=== PATIENT | female | born 1995 | race Caucasian/White ===

== ENCOUNTER → 2018-04-10 14:58 | Outpatient (CLI) | payer OTHER, SELFPAY ==
[2018-04-11 12:49] LABS: Strep Grp B PCR POS for Grp B Strep
== END ==
PROVIDERS: Visit Provider Family Medicine
DX: Z3A.36 36 weeks gestation of pregnancy (principal)
CPT/HCPCS: 87653

== ENCOUNTER 2018-04-18 17:00 | Outpatient (CLI) | payer OTHER, SELFPAY | END 2018-04-18 17:47 | disposition home or self-care (01) | LOC: OB 04-21 15:22 | PROVIDERS: Visit Provider Family Medicine | DX: Z34.83 Encounter for supervision of other normal pregnancy, third trimester (principal); Z3A.37 37 weeks gestation of pregnancy | CPT/HCPCS: 59025; G0378; G0379 ==

== ENCOUNTER 2018-04-28 10:50 | Inpatient (IN) | payer OTHER, SELFPAY ==
[2018-04-28 12:14] LABS: Add Manual Diff / Slide Review NO; Basophils Percent Auto 0.5 % (0-2); Eosinophils Percent Auto 2.2 % (2-4); Hematocrit 27.4 % (36-46); Hemoglobin 8.6 g/dL (12.0-16.0); Lymphocytes Percent Auto 21.9 % (25-40); Mean Corpuscular HGB Conc 31.6 % (30-36); Mean Corpuscular Hemoglobin 21.9 PG (26-34); Mean Corpuscular Volume 69.5 fL (80-100); Neutrophils Absolute Auto 6800 /uL (3000-5900); Neutrophils Percent Auto 66.4 % (50-75); Platelet Count 293 X10^3/uL (150-400); Red Blood Cell Count 3.94 X10^6/uL (4.0-5.2); Red Cell Distribution Width 18.8 % (11.6-14.8); White Blood Cell Count 10.3 X10^3/uL (4.5-11.0)
[2018-04-28] MEDS: LACTATED RINGERS 1,000 ML 100 ML IV ×2 (12:14→15:13)
[2018-04-28] MEDS: PENICILLIN G POTASSIUM 5,000,000 UNIT in DEXTROSE 5% IN WATER 250 ML IV (12:15)
[2018-04-28 12:30] VITALS: BP 122/74
[2018-04-28 12:34] LABS: Anisocytosis 1+
--- NOTE | 2018-04-28 13:24 | P.HPOB_ITS ---
OB HPI History of Present Illness Chief complaint: EVALUATION OF LABOR Narrative: Nasrin Perez is a 22 year old female G2 para 1 at 39 weeks gestational age presented to my office this morning. She has a history of rapid deliveries. Length of labor previously was 4 hr. She comes in today intermittently saeed. Her cervix is 5-6 cm 80% effaced and bulging bag. Patient's GBS status is positive. She has had intermittent contractions all weekend but nothing strong. She has no fevers. She is not complaining of any vaginal discharge. And she feels good. After discussion with the patient and her examination of 5 cm dilated with a stretchy cervix to 6. Head and her GBS status being positive and previous history of rapid labors discussion with the Center and she was admitted to the labor and delivery floor for IV antibiotics and rupture of membranes for delivery. Due to her precipitous his previous delivery. care was established early at the [facility] and she was transferred. She has had routine follow-up. Her non weight was 178. Her current weight is 210. Blood pressures been normal and stable throughout. She previously has had 2 spontaneous abortions in a vaginal delivery with an epidural. No major problems during the visit she has been taking vitamins and has had some Proctofoam for some hemorrhoids. Past surgical history. Patient has had some with some teeth otherwise no major surgeries. Allergies patient has no known drug allergies. Past medical history denies hypertension heart disease asthma. Evaluation Evaluation Laboratory results: Laboratory Tests 04/28/18 04/28/18 04/28/18 11:10 11:10 Unknown WBC 10.3 RBC 3.94 L Hgb 8.6 L Hct 27.4 L MCV 69.5 L MCH 21.9 L MCHC 31.6 RDW 18.8 H Plt Count 293 Cancelled Neut % (Auto) 66.4 Lymph % (Auto) 21.9 L [place] % (Auto) 9.0 Eos % (Auto) 2.2 Baso % (Auto) 0.5 Neut # (Auto) 6800 H Plt Morphology Comment RBC Morphology Not Reportable Anisocytosis 1+ H Blood Type O Negative Antibody Screen Negative PFSH Social History Smoking Status: Never smoker Meds Home Medications Medication Instructions Recorded Confirmed Type PNV #[id number] acid-[id number] 1 tab PO DAILY 04/28/18 04/28/18 History Allergies Allergy/AdvReac Type Severity Reaction Status Date / Time bee venom protein (honey bee) Allergy Severe Swelling Verified 04/28/18 12:29 walnut Allergy Severe Swelling Verified 04/28/18 12:30 of Lip/Tongue/Throat Exam Vital Signs (past 8 hours): - 04/28/18 12:30 Blood Pressure 122/74 H Narrative Exam Narrative: . General: Alert no apparent distress. Affect is appropriate. Sae[place] it is uncomfortable. HEENT: Neck is supple without lymphadenopathy pupils equal round and reactive. Cardio: S1-S2 regular rate and rhythm. Respiratory: Lungs clear to auscultation. Abdomen: Gravid. Extremities: Normal deep tendon reflexes trace edema. [place]: Saeed regularly every 5 min irregularly with category 1 tracing heart tones: Good heart tones 130s to 140s reactive strip. Objective Labs Result Diagrams: 04/28/18 11:10 Labs: Laboratory Results - last 24 hr 04/28/18 04/28/18 04/28/18 11:10 11:10 Unknown WBC 10.3 RBC 3.94 L Hgb 8.6 L Hct 27.4 L MCV 69.5 L MCH 21.9 L MCHC 31.6 RDW 18.8 H Plt Count 293 Cancelled Neut % (Auto) 66.4 Lymph % (Auto) 21.9 L [place] % (Auto) 9.0 Eos % (Auto) 2.2 Baso % (Auto) 0.5 Neut # (Auto) 6800 H Plt Morphology Comment RBC Morphology Not Reportable Anisocytosis 1+ H Blood Type O Negative Antibody Screen Negative Assessment and Plan Plan: Plan: G2 para 1 at 39 weeks gestational age with 5-6 cm dilation with a stretchy cervix and bulging bag previous history of precipitous deliveries. She is currently GBS positive. Will meter to the Center. Will proceed with the penicillin G prophylaxis for GBS positive we will provide 2 courses. Because of her last rapid delivery she would like to have an epidural and then we will proceed with amniotomy. CBC will be drawn. And continue with expectant management.
[2018-04-28] MEDS: PENICILLIN G POTASSIUM 3,000,000 UNIT/50 ML FROZ.PIGGY 100 UNIT IV (16:17)
--- NOTE | 2018-04-28 17:09 | PM.OBPNLAB ---
Date/Time Date Patient Seen: 04/28/18 Time Patient Seen: 17:09 Pain Control Pain control: epidural Pelvic Exam Dilation (cm): 6 Effacement (%): 90 station: -1 Amniotic membrane status: Ruptured Comments: Clear fluid Contractions Contractions on admission: irregular Monitor mode: External Contraction frequency (min): 5 Contraction duration (min): 1 Contraction pattern: Irregular Status status: Category l Heart Rate Baseline: 135 Monitor Accelerations: Present Monitor Decelerations: Absent Monitor Variability: Moderate Assessment and Plan Assessment: induction ongoing Plan: continuous present management and begin patient augmentation Comments: Amniotomy done. Clear fluid. Baby's head engaged. We will see if labor progresses if not will start Pitocin. Discussed and updated care plan with patient
[2018-04-28] MEDS: OXYTOCIN PREMIX 30 UNIT/500 ML PLAST..BAG IV (17:27)
--- NOTE | 2018-04-28 19:24 | PM.OBPRVD ---
Delivery date: 04/28/18 Intrapartal events: Precipitous Labor < 3 hours Induction method: AROM Delivery augmentation: pitocin Delivery monitor: external FHT Route of delivery: Laceration description: None Estimated blood loss (mL): 200 Anesthesia type: Epidural Narrative: Stage I of labor 2 hr. Patient red labor and delivery for labor induction she presented to the office at 5 cm 90% effaced 0 to -1 station which the stress she cervix to 6-7 cm due to her GBS positive status and previous history of rapid delivery at 4:00 a.m. she was admitted. Patient received 2 doses of penicillin. During this time category 1 tracing. After the 2 doses of penicillin she was given epidural anesthesia by request. Patient had a ROM of clear fluid. Mild Pitocin augmentation. Within an hour and half patient became complete and +2. During stage I of labor heart tones were reassuring. Mother tolerated labor fine. Stage II approximately 15 min patient pushed to complete a viable female with the occiput put anterior position. Delivery of the head showed no nuchal cord delivery of the shoulder showed a mild body cord. Baby was delivered spontaneously and placed on mother's abdomen. Baby was vigorous. Cord was cut and transected. Baby has had spontaneous cry. During stage II of labor heart tones were category 1. Stage III of labor. Delivery of intact placenta with three-vessel cord estimated blood loss was 300 cc inspection of the vagina and cervix shows no lacerations or tears. Baby's Apgars 8 and 9 estimated blood loss 200 cc.
[2018-04-29] MEDS: HYDROCODONE/ACET 5/325 TABLET 1 TAB PO ×4 (06:54→20:08)
[2018-04-29] MEDS: DOCUSATE 250 MG CAPSULE PO (08:30)
[2018-04-29] MEDS: PRENATAL VIT,CALC/IRON/FOLIC 1 TABLET 1 TAB PO (08:30)
--- NOTE | 2018-04-29 08:42 | PM.OBPN.1 ---
Subjective - OB Interval history: day 1. Patient is doing well. Up ambulating eating well. Normal urination. Vaginal bleeding is as expected. Pain is well controlled. Breast-feeding is going okay difficulty with breast-feeding with last baby. Vital signs are stable. Blood counts are normal. Exam Narrative Exam Narrative: General: Alert no apparent distress. Affect is appropriate. [place] it is uncomfortable. HEENT: Neck is supple without lymphadenopathy pupils equal round and reactive. Cardio: S1-S2 regular rate and rhythm. Respiratory: Lungs clear to auscultation. Abdomen: Uterus firm. Extremities: Normal deep tendon reflexes trace edema. Objective Labs Result Diagrams: 04/28/18 11:10 Labs: Laboratory Results - last 24 hr 04/28/18 04/28/18 04/28/18 11:10 11:10 Unknown WBC 10.3 RBC 3.94 L Hgb 8.6 L Hct 27.4 L MCV 69.5 L MCH 21.9 L MCHC 31.6 RDW 18.8 H Plt Count 293 Cancelled Neut % (Auto) 66.4 Lymph % (Auto) 21.9 L [place] % (Auto) 9.0 Eos % (Auto) 2.2 Baso % (Auto) 0.5 Neut # (Auto) 6800 H Plt Morphology Comment RBC Morphology Not Reportable Anisocytosis 1+ H Blood Type O Negative Antibody Screen Negative Maternal Bleed 04/29/18 06:45 WBC RBC Hgb Hct MCV MCH MCHC RDW Plt Count Neut % (Auto) Lymph % (Auto) [place] % (Auto) Eos % (Auto) Baso % (Auto) Neut # (Auto) Plt Morphology Comment RBC Morphology Anisocytosis Blood Type Antibody Screen Maternal Bleed Negative Assessment & Plan Plan Comments: day 1. Vital signs are stable blood counts good. Patient is . Pain is well controlled tolerating diet and ambulating. Discharge tomorrow. Time Spent With Patient Total time spent is greater than 50% in coordination of care (as documented) at patient's floor/unit and/or counseling patient: less than 15 minutes
[2018-04-29 09:47] LABS: Hemoglobin 7.7 g/dL (12.0-16.0)
[2018-04-29 09:50] LABS: Hematocrit 24.1 % (36-46)
[2018-04-29] MEDS: RHO(D) IMMUNE GLOBULIN 1,500 UNIT SYRINGE 1500 UNIT IM (20:03)
--- NOTE | 2018-04-30 08:26 | PM.OBDS.1 ---
Discharge Providers Date of admission: 04/28/18 11:32 Consults: 04/29/18 06:36 Consult to Food Stand Manager Routine Comment: Discharge provider: Flo Morel MD Summary Time Spent with Patient Patient delivered a viable female infant. Routine care provided. Patient discharged on ibuprofen Colace and hydrocodone for pain control. Patient will follow up in 6 weeks for care. Objective Labs Result Diagrams: 04/29/18 07:00 Labs: Laboratory Results - last 24 hr 04/29/18 07:00 Hgb 7.7 L Hct 24.1 L Discharge Plan Discharge Plan Patient Disposition: Home, Self-Care Discharge comment: home f/u nga in 6 weeks Discharge Med Rec/Prescriptions Prescriptions: New hydrocodone-acetaminophen 5-325 mg tablet 2 tab PO Q6-8H PRN (Reason: pain) Qty: 30 RF: 0 docusate sodium [Colace] 100 mg capsule 100 mg PO BID Qty: 30 RF: 0 ibuprofen 600 mg tablet 600 mg PO TID PRN (Reason: pain) Qty: 30 RF: 0 No Action PNV #[id number] acid-omega3 1 tab PO DAILY RF: 0 Discharge Data Attending Provider: Flo Morel Admit Date/Time: 04/28/18 11:32
[2018-04-30 09:31] VITALS: BP 125/83; PULSE 81; RESP 16; TEMP 36.8
[2018-04-30 10:11] VITALS: BP 125/83; PULSE 81; RESP 16; TEMP 36.8
== END 2018-04-30 11:00 | disposition home or self-care (01) | DRG 774 ==
PROVIDERS: Admitting Provider Family Medicine; Visit Provider Family Medicine
DX: O98.82 Other maternal infectious and parasitic diseases complicating childbirth (principal); B95.1 Streptococcus, group B, as the cause of diseases classified elsewhere; Z3A.39 39 weeks gestation of pregnancy; Z37.0 Single live birth
CPT/HCPCS: 01967; 36415; 59050; 59410; 85014; 85018; 85025; 85461; 86850; 86900; 86901; G0378; G0379; J2540; J2590; J2790

== ENCOUNTER → 2019-08-26 14:00 | Outpatient (CLI) | payer OTHER, SELFPAY ==
--- NOTE | 2019-08-26 14:01 | DI.US.S_ITS ---
PROCEDURE: US OB >= 14 WEEKS FETUS INDICATIONS: ANATOMY, RAIMUNDO 01-11-20 OUTSIDE/PRIOR DATING DATA: Estimated date of delivery (RAIMUNDO) from first dating scan: 01/11/[address] Morel. TECHNIQUE: Real-time scanning was performed of the fetus, with image documentation and biometric measurements. Endovaginal scanning: No COMPARISON: [facility], , OB >= 14 WEEKS FETUS, 03/18/2018, 14:40. FINDINGS: General: A single living intrauterine gestation is present. Presentation: Breech. Placenta: Placental position is anterior, without previa. Amniotic fluid index: 12.5 cm, normal range is 5-24 cm. heart rate: 137 beats per minute. Maternal cervical canal: 3.2 cm long. Normal lower limit is 2.5 cm. biometrics: Biparietal diameter: 18 weeks 5 days Head circumference: 19 weeks Abdominal circumference: 19 weeks 2 days Femur length: 19 weeks 6 days Estimated gestational age from initial scan: 20 weeks 2 days Composite gestational age from present scan: 19 weeks 2 days Estimated weight and percentile: 296 g; 11 percentile Measurement variability for biometric dating: +/- 7 days from 14 weeks to 15 weeks 6 days gestation, +/- 10 days from 16 weeks to 21 weeks 6 days gestation, +/- 2 weeks from 22 weeks to 27 weeks 6 days gestation, +/- 3 weeks for 28 weeks gestation or later. weight reference: 4500 g or EFW >90/95% is considered macrosomia or large for gestational age. EFW <10% is small for gestational age. EFW 5% or less is considered intra-uterine growth restriction. Anatomic survey: Neuro: Ventricles are non-dilated at less than 10 mm. Cisterna magna is normal at 3-11 mm. Cerebellum is normal in size and morphology. Nuchal skin fold: Normal at less than 6 mm between 14-21 weeks gestational age. Face: Nose and lips, facial profile are normal. Spine: Not well-seen. Heart: Normal four-chamber heart. Outflow tracts are not well seen. Diaphragm: Normal. Stomach: Left-sided stomach is present. Kidneys: No hydronephrosis. Normal is less than 5 mm in 2nd trimester, less than 7 mm in 3rd trimester. Cord: 3-vessel cord has orthotopic insertion. Bladder: Normal in size. Extremities: All 4 extremities identified. IMPRESSION: 1. Single living IUP redemonstrated and interval growth is lower limits of normal. 2. spine, 4 chamber heart and cardiac outflow tracts suboptimally visualized; otherwise normal anatomic survey. Followup recommended. Dictated by: Chiki ZURITA Interpreted: Dario Wills MD on 08/26/2019 at 16:51 Approved by: Dario Wills M.D. on 08/27/2019 at 15:19
== END ==
PROVIDERS: Visit Provider Family Medicine
DX: Z34.82 Encounter for supervision of other normal pregnancy, second trimester (principal); Z3A.19 19 weeks gestation of pregnancy
CPT/HCPCS: 76811

== ENCOUNTER → 2019-10-26 08:21 | Outpatient (CLI) | payer OTHER, SELFPAY ==
[2019-10-26 09:54] LABS: Hematocrit 29.9 % (36-46); Hemoglobin 9.9 g/dL (12.0-16.0)
[2019-10-26 10:10] LABS: GTT (PREG) 1 Hour PP 50gm Dose 144 mg/dL (76-139)
== END ==
PROVIDERS: Referring Provider Family Medicine; Visit Provider Family Medicine
DX: Z34.82 Encounter for supervision of other normal pregnancy, second trimester (principal); Z3A.26 26 weeks gestation of pregnancy
CPT/HCPCS: 36415; 82950; 85014; 85018

== ENCOUNTER → 2019-10-27 14:38 | Outpatient (CLI) | payer OTHER, SELFPAY | PROVIDERS: PCP Student in an Organized Health Care Education/Training Program; Referring Provider Family Medicine; Visit Provider Family Medicine | DX: Z34.83 Encounter for supervision of other normal pregnancy, third trimester (principal); Z3A.29 29 weeks gestation of pregnancy | CPT/HCPCS: 36415; 86850 ==

== ENCOUNTER → 2019-11-02 08:57 | Outpatient (CLI) | payer OTHER, SELFPAY ==
[2019-11-02 10:24] LABS: Glucose Fasting 85 mg/dL (70-100)
[2019-11-02 11:32] LABS: Glucose 1 Hour 159 mg/dL (70-170)
[2019-11-02 12:59] LABS: Glucose 2 Hour 119 mg/dL (70-140)
[2019-11-02 13:01] LABS: Glucose Tol Interpretation INTERPRETATION
[2019-11-02 14:11] LABS: Glucose 3 Hour 78 mg/dL (70-115)
== END ==
PROVIDERS: PCP Student in an Organized Health Care Education/Training Program; Referring Provider Family Medicine; Visit Provider Family Medicine
DX: O24.419 Gestational diabetes mellitus in pregnancy, unspecified control (principal)
CPT/HCPCS: 36415; 82951; 82952

== ENCOUNTER → 2019-12-14 08:28 | Outpatient (CLI) | payer OTHER, SELFPAY ==
[2019-12-15 12:58] LABS: Strep Grp B PCR NEG for Grp B Strep
== END ==
PROVIDERS: PCP Student in an Organized Health Care Education/Training Program; Visit Provider Family Medicine
DX: Z34.83 Encounter for supervision of other normal pregnancy, third trimester (principal); Z3A.36 36 weeks gestation of pregnancy
CPT/HCPCS: 87653

== ENCOUNTER → 2019-12-21 12:00 | Outpatient (CLI) | payer OTHER, SELFPAY ==
--- NOTE | 2019-12-21 12:03 | DI.US.S_ITS ---
PROCEDURE: US OB >= 14 WEEKS FETUS INDICATIONS: DECREASED SIZE TECHNIQUE: Real-time scanning was performed of the fetus, with image documentation and biometric measurements. COMPARISON: [facility], , OB >= 14 WEEKS FETUS, 08/26/2019, 14:26. FINDINGS: General: A single living intrauterine gestation is present. Presentation: Since Placenta: Placental position is anterior without evidence of previa. Amniotic fluid index: 13.6 cm heart rate: 162 beats per minute. Maternal cervical canal: Not adequately seen. biometrics: Biparietal diameter: 8.7 cm, 35 weeks 1 day Head circumference: 32.1 cm, 36 weeks 1 day Abdominal circumference: 30.8 cm, 34 weeks 6 days Femur length: 7.2 cm, 36 weeks 5 days Estimated gestational age from initial scan: 37 weeks 0 days Composite gestational age from present scan: 35 weeks 5 days Estimated weight and percentile: 2697 g (19th percentile) IMPRESSION: 1. Single live intrauterine at 35 weeks 5 days (current sonographic RAIMUNDO 01/20/20) is concordant with the clinical dates and has demonstrated appropriate interval growth. 2. Estimated weight is within the 19th percentile. Dictated by: Darryl Epperson M.D. on 12/21/2019 at 11:50 Approved by: Darryl Epperson M.D. on 12/21/2019 at 11:53
== END ==
PROVIDERS: PCP Student in an Organized Health Care Education/Training Program; Referring Provider Family Medicine; Visit Provider Family Medicine
DX: Z36.4 Encounter for antenatal screening for fetal growth retardation (principal); Z3A.35 35 weeks gestation of pregnancy
CPT/HCPCS: 76815

== ENCOUNTER 2019-12-23 14:43 | Outpatient (CLI) | payer OTHER, SELFPAY | END 2019-12-23 15:55 | disposition home or self-care (01) | LOC: OB 12-24 08:07 | PROVIDERS: PCP Student in an Organized Health Care Education/Training Program; Referring Provider Family Medicine; Visit Provider Family Medicine | DX: O36.5930 Maternal care for other known or suspected poor fetal growth, third trimester, not applicable or unspecified (principal); O26.23 Pregnancy care for patient with recurrent pregnancy loss, third trimester; Z3A.37 37 weeks gestation of pregnancy | CPT/HCPCS: 59025; 84112; G0378; G0379 ==

== ENCOUNTER → 2020-01-04 15:16 | Outpatient (CLI) | payer OTHER, SELFPAY ==
[2020-01-05 19:42] LABS: COVID19 Sendout Not Detected (Not Detect)
== END ==
PROVIDERS: PCP Student in an Organized Health Care Education/Training Program; Visit Provider Registered Nurse
DX: Z34.90 Encounter for supervision of normal pregnancy, unspecified, unspecified trimester (principal)
CPT/HCPCS: 87635

== ENCOUNTER 2020-01-07 07:53 | Inpatient (IN) | payer OTHER, SELFPAY ==
--- NOTE | 2020-01-07 08:03 | PM.OBHP.1 ---
OB HPI History of Present Condition Chief complaint: MATERNITY Narrative: Nasrin Perez is a 24 year old female G5 para 2 estimated due date of 01/11/2020 with LMP and 01/14/2020 with early ultrasound presents for induction of labor. Patient has a history of previous rapid deliveries 4 hours and approximately 2 hours. She was a late transfer of care from the [facility]. She has had routine care. complications include O negative blood type received RhoGAM history of rapid deliveries previous history of GBS positive status carrier negative this mildly elevated 1 hour GGT at 1:44 a.m. and anemia with iron supplementation. Patient was provided diabetes educator and managed her blood sugars with diet. At the end . Mom had decreased in abdominal circumference and ultrasound was done which showed baby to be at 19th percentile based on ultrasound. Patient states she has been feeling well. Good baby movement over the last week no headache fevers chills nausea vomiting. Some mild swelling. No leaking of fluid or vaginal bleeding. On arrival to the center her baby is category 1 tracing. Blood pressure is normal and she is afebrile. labs show O negative blood type RhoGAM given. GC chlamydia negative syphilis negative HIV negative hepatitis-B and C negative rubella and varicella immune. GGT 1 hour 144 GBS negative hemoglobin hematocrit 9.9 and 29.9. Normal genetic screening. Normal 20 week ultrasound. Evaluation Evaluation Baseline heart rate: 145 Variability: Average (6-10) monitor accelerations: Present Category of Tracing: I Cervical dilation (cm): 1 Cervical effacement (%): 70 station: -3 [facility] Surgical History History of D&C (Acute ~01/2016) History of D&C (Acute ~04/2016) [place] teeth removed (Acute) Family History Mother Asthma Glaucoma Macular degeneration Multiple births, unspecified, all liveborn Father Glaucoma Macular degeneration Grandfather Cardiovascular disease Grandfather Diabetes mellitus Grandmother Breast cancer Social History marital status: household members: spouse and children Smoking Status: Never smoker alcohol intake: current (ON OCCASION ) substance use type: does not use Meds Home Medications and Allergies Home Medications Medication Instructions Recorded Confirmed Type PNV #[id number] acid-omega3 1 tab PO DAILY 04/28/18 01/07/20 History Allergies Allergy/AdvReac Type Severity Reaction Status Date / Time bee venom protein (honey bee) Allergy Severe Swelling Verified 12/28/19 11:25 [place] Allergy Severe Swelling Verified 12/28/19 11:25 of Lip/Tongue/Throat Exam Narrative Exam Narrative: . General: Alert no apparent distress. Affect is appropriate. [place] it is uncomfortable. HEENT: Neck is supple without lymphadenopathy pupils equal round and reactive. Cardio: S1-S2 regular rate and rhythm. Respiratory: Lungs clear to auscultation. Abdomen: Gravid. Extremities: Normal deep tendon reflexes trace edema. Cervical exam 70% 1 cm -3 soft posterior [place]: Currently no contractions heart tones: Category 1 heart rate 145 Objective Labs Result Diagrams: 01/07/20 08:20 Assessment and Plan Assessment and Plan Assessment and Plan narrative: 24-year-old G5 para 2 39+ weeks gestational age for induction of labor. Patient has a history of rapid labors. GBS status is negative. care complicated by elevated GGT monitored by diet. Mild anemia which she was on iron supplementation and decreased growth near the end of the with an ultrasound showed 19% weight. After review of the patient with the risks benefits and common complications of induction of labor. Patient's consent was obtained. Labor orders were written for. And begin induction at with peau ptosis. Rupture of membranes when able. Epidural for pain relief.
[2020-01-07] MEDS: LACTATED RINGERS 1,000 ML 100 ML IV ×2 (08:20→12:46)
[2020-01-07] MEDS: OXYTOCIN PREMIX 30 UNIT/500 ML PLAST..BAG IV (08:38)
[2020-01-07 08:48] LABS: Add Manual Diff / Slide Review NO; Basophils Absolute Auto 0 /uL (0-100); Basophils Percent Auto 0.2 % (0-2); Eosinophils Absolute Auto 300 /uL (0-450); Eosinophils Percent Auto 3.4 % (2-4); Hematocrit 27.6 % (36-46); Hemoglobin 8.6 g/dL (12.0-16.0); Lymphocytes Absolute Auto 2300 /uL (1100-4500); Lymphocytes Percent Auto 22.5 % (25-40); Mean Corpuscular HGB Conc 31.3 % (30-36); Mean Corpuscular Hemoglobin 21.8 PG (26-34); Mean Corpuscular Volume 69.6 fL (80-100); Monocytes Absolute Auto 900 /uL (0-900); Monocytes Percent Auto 9.1 % (3-14); Neutrophils Absolute Auto 6600 /uL (1500-7000); Neutrophils Percent Auto 64.8 % (50-75); Platelet Count 283 X10^3/uL (150-400); Red Blood Cell Count 3.96 X10^6/uL (4.0-5.2); Red Cell Distribution Width 19.1 % (11.6-14.8); White Blood Cell Count 10.2 X10^3/uL (4.5-11.0)
[2020-01-07 09:24] VITALS: BP 115/65
[2020-01-07 10:15] LABS: Anisocytosis 1+
[2020-01-07 10:16] LABS: Hypochromasia 1+; Microcytosis 1+
--- NOTE | 2020-01-07 10:33 | PM.OBPNLAB ---
Date/Time Date Patient Seen: 01/07/20 Time Patient Seen: 09:45 Pain Control Pain control: tolerating well Comments: started pitocin. doing well just starting to contract. Pelvic Exam Dilation (cm): 1 Effacement (%): 70 station: -3 Contractions Pitocin rate (mU/min): 6 Contraction frequency (min): 8 Contraction duration (min): 1 Contraction pattern: Irregular Status status: Category l Heart Rate Baseline: 145 Assessment and Plan Assessment: induction ongoing Plan: continuous present management
--- NOTE | 2020-01-07 12:13 | PM.OBPNLAB ---
Date/Time Date Patient Seen: 01/07/20 Time Patient Seen: 12:13 Pain Control Pain control: tolerating well Pelvic Exam Dilation (cm): 3 Effacement (%): 80 station: -2 Amniotic membrane status: Intact Contractions Contractions on admission: regular Monitor mode: External Pitocin rate (mU/min): 12 Contraction frequency (min): 5 Contraction duration (min): 1 Contraction pattern: Regular Status status: Category l Assessment and Plan Assessment: induction ongoing
--- NOTE | 2020-01-07 13:29 | P.PCN_ITS ---
Regional Block Pre-procedure Procedure: Continuous Lumbar Epidural for L&D Attending OB provider: Flo Morel PMH/JERSON narrative: term induction, no complications. Previous difficulties with epidurals: one sided, hypotension bradycardia with bradycardia r equiring treatment, high epidural, low epidural. ASA Class: II Labs: Hct 27.6 % (36-46) L 01/07/20 08:20 Plt Count 283 X10^3/uL (150-400) 01/07/20 08:20 Medications: Current Medications Generic Name Dose Route Start Last Admin Trade Name Freq PRN Reason Stop Dose Admin Diphenhydramine HCl 25 mg 01/07/20 12:33 Benadryl IV Q10M PRN Pruritis Lactated Ringer's 1,000 mls @ 125 mls/hr 01/07/20 08:45 Lactated Ringers IV CONT JODI Oxytocin/Lactated Ringer's 30 unit in 500 mls @ 3 mls/hr 01/07/20 08:45 01/07/20 08:38 Oxytocin Premix IV 3 milliunit/min TITRATE JODI 3 mls/hr Administration Protocol 3 MILLIUNIT/MIN Lactated Ringer's 1,000 mls @ 100 mls/hr 01/07/20 08:45 01/07/20 12:46 Lactated Ringers IV 100 mls/hr CONT JODI Administration FENT 2MCG/ML BUPIV 0.125% EPI 200 mcg in 100 mls @ 6 mls/hr 01/07/20 12:45 Fentanyl/Bupiv/Ns 2mcg/Ml - 0.125% EPIDURAL CONT JODI Allergies: Allergies Allergy/AdvReac Type Severity Reaction Status Date / Time bee venom protein (honey bee) Allergy Severe Swelling Verified 12/28/19 11:25 [place] Allergy Severe Swelling Verified 12/28/19 11:25 of Lip/Tongue/Throat Procedure Insertion date: 01/07/20 Insertion time: 13:08 Prep/Local: betadine x3 Interspace: L2-3 Patient position: sitting Needle: 18 gauge Hustead (27g Pencan through Hustead, clear CSF, 0.5mL bupivacaine 0.25%) Loss of resistance with: saline NA at (cm): 5 Catheter placed at SKIN (cm): 10 Catheter in SPACE (cm): 5 Insertion: No CSF, No Blood, Yes Paresthesia with insertion, No Paresthesia with injection and No Test dose reaction Initial Medications TEST DOSE time: 13:09 TEST DOSE: 1.5% lidocaine with epinephrine 1:200k (mL): 3 BOLUS DOSE time: 13:20 BOLUS DOSE (mL): 3 BOLUS DOSE med: 0.125% bupivacaine with fentanyl 10 mcg/mL Infusion INFUSION: 0.125% bupivacaine and with fentanyl 2 mcg/mL Initial rate (mL/hr): 6 Subsequent interventions: 1445: pain returned suddenly with contractions, given 5mL 0.25% and 50mcg fentanyl LEP bolus, rate increased to 10mL/h. 1503: no relief, delivered at about 15:15. Post-procedure Anesthesia time START: 12:51 Anesthesia time END: 15:17 Post-procedure Anesthesia Assessment: Yes CV function: HR/BP stable, Yes Resp function: RR/sat/airway adequate, Yes Post-op hydration adequate, Yes Pain control adequate and Yes Mental status appropriate
--- NOTE | 2020-01-07 14:03 | PM.OBPNLAB ---
Date/Time Date Patient Seen: 01/07/20 Time Patient Seen: 14:03 Pain Control Pain control: tolerating well and epidural Pelvic Exam Dilation (cm): 5 Effacement (%): 80 station: -2 Amniotic membrane status: Leaking Comments: clear fluid Contractions Monitor mode: External Pitocin rate (mU/min): 12 Contraction frequency (min): 4 Contraction pattern: Regular Status status: Category l Heart Rate Baseline: 140 Monitor Accelerations: Present Monitor Decelerations: Absent Monitor Variability: Moderate Assessment and Plan Assessment: induction ongoing Plan: continuous present management Comments: rom clear fluid epidural in place. good pain control. ruelas in place. vss and afibrle. reasuring heart tones.
--- NOTE | 2020-01-07 15:25 | PM.OBPRVD ---
Labor & Delivery Route of delivery: Narrative: I was present on the floor and called in to attend this patient, currently precipitously delivering, while her primary care OB provider was being called. Head was already delivered when I entered the room and there was a loose nuchal cord. I quickly put on gloves and reduced the cord without difficulty. She then pushed and anterior followed by posterior shoulders were delivered with ease, followed by the remainder of the body. The baby was placed on maternal abdomen and was vigorous. After over 1 minutes, there was no longer any cord pulsation and cord was being clamped, then cut by father of baby. Placenta was still attached. Perineum was noted to be intact. Dr. Morel, her OB, arrived at this time and took over for delivery of the placenta and further patient care. See his delivery note.
--- NOTE | 2020-01-07 15:46 | P.PCNOB_ITS ---
Events: Labor Induction and Labor Augmentation Labor & Delivery Delivery date: 01/07/20 Induction method: per pitocin protocol Delivery augmentation: rupture of membranes Delivery monitor: external FHT Route of delivery: L&D Laceration Description: None Estimated blood loss (mL): 200 Anesthesia type: Epidural Narrative: Stage I of labor approximately 5 hours. Patient was admitted to the labor and delivery floor for induction of labor. Elective. Baby was category 1 at the beginning of the labor process with normal vital signs on mom and normal temperature. After evaluation blood was drawn on mom she was found to be anemic which she has been during the . She had normal platelet counts. Pitocin was started. During stage I of labor she had reassuring heart tones. She got up to a 15 milliunits of Pitocin. Category 1 category 2 tracing throughout stage I of labor. Baby tolerated labor fine. Mom did well. Approximately 5 cm patient was given an epidural with good results. Then had rupture of membranes with clear fluid. Baby made good descent through the canal during the labor process. Stage II approximately 5 minutes. Delivery of viable female infant vertex position nuchal cord easily reducible. I was coming from my office to the delivery floor as patient went from complete delivery fat rather rapidly and Dr. Avni Whitt withstanding by. Baby was easily delivered placed on mother's abdomen. Cord was pulsating then cut and clamped. Baby was resting comfortably. During stage II of labor category 1 tracing. Vital signs were stable. Pitocin was on board. Stage III approximately 5 minutes. Delivery of intact placenta with three- vessel cord. Inspection of vagina showed no cervical or vaginal lacerations which needing repair. Mom and baby were resting good afterwards. Apgars were 8 and 9 estimated blood loss was less than 200 cc.
[2020-01-07] MEDS: ACETAMINOPHEN 325 MG TABLET 650 MG PO (18:54)
[2020-01-08] MEDS: ACETAMINOPHEN 325 MG TABLET 650 MG PO (00:56)
[2020-01-08] MEDS: IBUPROFEN 600 MG TABLET PO (03:49)
[2020-01-08 06:42] LABS: Hematocrit 25.6 % (36-46); Hemoglobin 8.1 g/dL (12.0-16.0)
[2020-01-08] MEDS: HYDROCODONE/ACET 5/325 TABLET 1 TAB PO (06:53)
--- NOTE | 2020-01-08 07:56 | PM.OBDS.1 ---
Discharge Providers Provider Date of admission: 01/07/20 07:53 Discharge Date: 01/08/20 Primary care physician: Wendi Ch Consults: 01/08/20 15:50 Consult to Contact Center Specialist Routine Comment: Discharge provider: Flo Morel MD Summary Hospital Course Date Patient Seen: 01/08/20 Time Patient Seen: 07:57 Procedures: Vaginal delivery Hospital Course: Routine delivery and post delivery care. Peripartum Data Infant Delivery Method: Natural Vaginal Laceration description: None Procedures: Spontaneous vaginal delivery of viable female infant Apgars 8 9 Spontaneous delivery of intact placenta complications: none Status at Discharge Cognitive/behavioral status at discharge: oriented Functional status at discharge: independent ambulation Overall status at discharge: patient is back to baseline Time Spent with Patient Time attestation: Total time spent providing and/or coordinating discharge services: Time spent: Less than 30 minutes Objective Labs Result Diagrams: 01/08/20 06:35 Labs: Laboratory Results - last 24 hr 01/07/20 01/07/20 01/08/20 08:20 08:20 06:35 WBC 10.2 RBC 3.96 L Hgb 8.6 L 8.1 L Hct 27.6 L 25.6 L MCV 69.6 L MCH 21.8 L MCHC 31.3 RDW 19.1 H Plt Count 283 Neut % (Auto) 64.8 Lymph % (Auto) 22.5 L [place] % (Auto) 9.1 Eos % (Auto) 3.4 Baso % (Auto) 0.2 Neut # (Auto) 6600 Lymph # (Auto) 2300 [place] # (Auto) 900 Eos # (Auto) 300 Baso # (Auto) 0 RBC Morphology See below Hypochromasia 1+ H Anisocytosis 1+ H Microcytosis 1+ H Blood Type O Negative Antibody Screen Positive Antibody Identification Anti-D Maternal Bleed 01/08/20 06:35 WBC RBC Hgb Hct MCV MCH MCHC RDW Plt Count Neut % (Auto) Lymph % (Auto) [place] % (Auto) Eos % (Auto) Baso % (Auto) Neut # (Auto) Lymph # (Auto) [place] # (Auto) Eos # (Auto) Baso # (Auto) RBC Morphology Hypochromasia Anisocytosis Microcytosis Blood Type Antibody Screen Antibody Identification Maternal Bleed Negative Discharge Plan Discharge Plan Patient Disposition: Home Discharge orders & Medications Prescriptions: New docusate sodium [DOK] 100 mg Capsule 100 mg PO BID Qty: 30 RF: 0 ibuprofen 600 mg Tablet 600 mg PO Q6HR PRN (Reason: Pain, Mild (1-3)) Qty: 30 RF: 0 ferrous gluconate 324 mg (38 mg iron) Tablet 324 mg PO BID Qty: 60 RF: 1 Continued PNV #[id number] 1 tab PO DAILY Qty: 90 RF: 3 PNV #[id number] acid-[id number] 1 tab PO DAILY RF: 0 Follow up/Referrals: Wendi Ch [Primary Care Provider] - Diet/Activity/Treatments Diet: Diet as Tolerated Activity: As tolerated Visit Report/Discharge Packet Visit Report Forms: Patient Portal/API, Stroke Signs & Symptoms Discharge Data Primary Care Provider: Wendi Ch Attending Provider: Flo Morel Admit Date/Time: 01/07/20 07:53
[2020-01-08] MEDS: DOCUSATE 100 MG CAPSULE PO (08:25)
[2020-01-08] MEDS: FERROUS GLUCONATE 324 MG TABLET PO (08:25)
[2020-01-08] MEDS: PRENATAL VIT,CALC/IRON/FOLIC 1 TABLET 1 TAB PO (08:25)
[2020-01-08] MEDS: RHO(D) IMMUNE GLOBULIN 1,500 UNIT SYRINGE 1500 UNIT IM (08:26)
== END 2020-01-08 11:45 | disposition home or self-care (01) | DRG 807 ==
PROVIDERS: Admitting Provider Family Medicine; PCP Student in an Organized Health Care Education/Training Program; Referring Provider Family Medicine; Visit Provider Family Medicine
DX: O99.02 Anemia complicating childbirth (principal); Z37.0 Single live birth; D64.9 Anemia, unspecified; Z3A.39 39 weeks gestation of pregnancy; O69.81X0 Labor and delivery complicated by cord around neck, without compression, not applicable or unspecified
CPT/HCPCS: 01967; 36415; 59050; 59410; 85014; 85018; 85025; 85461; 86850; 86870; 86900; 86901; G0378; G0379; J2590; J2790

== ENCOUNTER → 2020-09-28 09:08 | Outpatient (CLI) | payer OTHER, SELFPAY ==
--- NOTE | 2020-09-28 | DI.ECHO.S_ITS ---
[facility]---------+ [facility] +---------+ : : [address] : [address] : : : : [id number] : : : : Phone: [phone]+ Echocardiogram Report + + :Name: HILTON ELIZABETH Study Date: 09/28/2020 Height: 69.5 in: :[facility] Weight: 192 lb : : Gender: Female BSA: 2.0 m2 : :: 1995 Age: 25 yrs BP: 121/87 mmHg: :Reason For Study: CARDIAC CONDITION : :Ordering Physician: LASHON MUÑOZ : :JORDI JIMENEZ Performed By: Alana Romero : :Referring: LASHON MUÑOZ MD : + + Interpretation Summary Frequent PVCs noted. The left ventricle is normal in size and wall thickness. Left ventricular systolic function appears normal without focal wall motion abnormalities. The ejection fraction is estimated to be 55-60%. Diastolic parameters suggest probable normal left ventricular diastolic function and normal filling pressures. The right ventricle is normal in size and function. The left atrial size is normal. Right atrial size is normal. There is no significant valvular heart disease. The aortic root is normal size. Procedure: A two-dimensional transthoracic echocardiogram with color flow and Doppler was performed. The study quality was technically adequate. There is no prior echocardiogram noted for this patient. The patient had frequent PVCs during the exam. The heart rate ranged between 65-74 bpm during the study. Left Ventricle: The left ventricle is normal in size and wall thickness. Left ventricular systolic function appears normal without focal wall motion abnormalities. The ejection fraction is estimated to be 55-60%. Diastolic parameters suggest probable normal left ventricular diastolic function and normal filling pressures. Right Ventricle: The right ventricle is normal in size and function. Atria: The left atrial size is normal. Right atrial size is normal. There is no Doppler evidence for an interatrial shunt. Mitral Valve: The mitral valve is normal in structure and function. There is trace mitral regurgitation. Aortic Valve: The aortic valve is trileaflet. The aortic valve opens well. There is no aortic valve stenosis. No aortic regurgitation is present. Tricuspid Valve: The tricuspid valve is normal in structure and function. There is trace tricuspid regurgitation. Pulmonic Valve: The pulmonic valve is not well visualized. There is no pulmonic valvular regurgitation. There is no significant valvular heart disease. Great Vessels: The aortic root is normal size. The dimensions of the ascending aorta are normal. The IVC is of normal diameter and collapses greater than 50% with a sniff. This suggests a low right atrial pressure of 3 mm Hg. Pericardium/ Pleura There is no pericardial effusion. There is no pleural effusion. MMode/2D Measurements & Calculations LVIDd: 5.1 cm LVOT diam: 2.1 cm LVIDs: 3.4 cm Ao root diam: 2.6 cm FS: 33.6 % asc Aorta Diam: 2.4 cm EPSS: 1.4 cm Ao Arch Diam (Prox Trans): 2.1 cm IVSd: 0.93 cm LVPWd: 0.67 cm LV mcdermott. diameter/BSA (cm/m^2): 2.5 LV sys. diameter/BSA (cm/m^2): 1.7 LA A2 area: 13.6 cm2 RA long axis: 4.4 cm LA A4 area: 15.7 cm2 RA area: 14.0 cm2 LA length (vol): 5.0 cm RA vol: 38.2 ml LA vol: 36.3 ml RA : 18.7 ml/m2 LA vol index: 17.8 ml/m2 IVC diam: 1.6 cm RVD1 (basal): 3.1 cm TAPSE: 2.0 cm Doppler Measurements & Calculations Ao V2 max: 120.9 cm/sec LVOT Max Lencho: 89.7 cm/sec Ao V2 mean: 79.5 cm/sec LV V1 max P.2 mmHg Ao max P.8 mmHg LV V1 VTI: 18.4 cm Ao mean P.9 mmHg BENITO(I,D): 2.8 cm2 Ao V2 VTI: 22.7 cm BENITO(V,D): 2.5 cm2 sev ratio: 0.81 BENITO indexed to BSA (cm^2/m^2): 1.4 MV E max lencho: 99.0 cm/sec PA V2 max: 58.5 cm/sec MV A max lencho: 60.6 cm/sec PA V2 mean: 38.8 cm/sec MV E/A: 1.6 PA mean P.70 mmHg Med Peak E' Lencho: 10.2 cm/sec PA pr(Accel): 7.1 mmHg E/E' med: 9.7 Lat Peak E' Len[place]: 18.0 cm/sec E/E' lat: 5.5 E/e' average: 7.6 MV dec time: 0.19 sec SVLVOT): 62.5 ml Reading Physician:02:27 PM
== END ==
PROVIDERS: PCP Student in an Organized Health Care Education/Training Program; Referring Provider Family Medicine; Visit Provider Family Medicine
DX: I51.9 Heart disease, unspecified (principal)
CPT/HCPCS: 93306